=== PATIENT | male | born 1980 | race Caucasian/White ===

== ENCOUNTER → 2017-11-04 08:00 | Outpatient (CLI) | payer OTHER, SELFPAY ==
--- NOTE | 2017-11-04 08:00 | DT_ITS ---
This patient was seen during an EMR downtime November 02, 2017 - November 09, 2017. This patient may have a combination of paper and electronic documentation or all paper documentation. All documentation is viewable within the e-chart portion of [facility] [employer] for each patient visit.
== END ==
PROVIDERS: Visit Provider Physician Assistant
DX: M54.9 Dorsalgia, unspecified (principal)
CPT/HCPCS: 81001; 87086; 87088